=== PATIENT | male | born 1965 | race Caucasian/White ===

== ENCOUNTER 2020-12-26 16:47 | Outpatient (CLI) | payer BC, SELFPAY | END 2020-12-26 16:48 | disposition home or self-care (01) | LOC: ANHCOVIDVC 16:48 | PROVIDERS: PCP Family Medicine | DX: Z23 Encounter for immunization (principal) | CPT/HCPCS: 0001A; 91300 ==

== ENCOUNTER 2021-01-16 16:49 | Outpatient (CLI) | payer BC, SELFPAY | END 2021-01-16 16:50 | disposition home or self-care (01) | LOC: ANHCOVIDVC 16:50 | PROVIDERS: PCP Family Medicine | DX: Z23 Encounter for immunization (principal) | CPT/HCPCS: 0002A; 91300 ==

== ENCOUNTER 2021-01-18 07:00 | Outpatient (CLI) | payer BC, SELFPAY ==
[2021-01-18 07:34] LABS: Hematocrit 44.9 % (42.0-52.0); Hemoglobin 15.5 g/dL (14.0-18.0); Mean Corpuscular HGB Conc 34.5 g/dl (32-36); Mean Corpuscular Hemoglobin 29.6 pg (26-34); Mean Corpuscular Volume 85.7 fl (80-100); Mean Platelet Volume 9.6 fl (7.4-10.4); Platelet Count Result 153 k/mm3 (150-375); Red Blood Count 5.24 M/mm3 (4.6-6.20); Red Cell Distribution Width 11.8 % (11.5-14.5); White Blood Count 5.2 K/mm3 (4.5-10.0)
[2021-01-18 07:46] LABS: Alanine Aminotransferase 29 U/L (4-50); Albumin Level 4.5 g/dL (3.5-5.1); Alkaline Phosphatase 69 U/L (38-126); Anion Gap 8 mmol/L (8-16); Aspartate Amino Transferase 23 U/L (17-59); Bilirubin,Total 0.7 mg/dL (0.2-1.3); Blood Urea Nitrogen 11 mg/dL (9-20); Carbon Dioxide 28 mmol/L (22-30); Chloride 99 mmol/L (98-107); Cholesterol 176 mg/dL (0-200); Estimated Glomerular Filt Rate > 60; Glucose 293 mg/dL (75-110); HDL Direct 48 mg/dL; Potassium 4.5 mmol/L (3.4-5.0); Sodium 135 mmol/L (137-145); Triglycerides 206 mg/dL (<150)
[2021-01-18 07:57] LABS: LDL Cholesterol Direct 89 mg/dL
[2021-01-18 08:11] LABS: Creatinine Urine 112.4 mg/dL
[2021-01-18 08:15] LABS: MALB Creatinine Ratio 49.5 mg/g (0-30); Microalbumin Urine Random 55.6 mg/L (0-16.7)
[2021-01-18 10:03] LABS: Prostate Specific Antigen 1.1 ng/mL (< OR = 4.0)
== END 2021-01-18 07:01 | disposition home or self-care (01) ==
PROVIDERS: PCP Family Medicine; Visit Provider Nurse Practitioner Family
DX: E11.9 Type 2 diabetes mellitus without complications (principal); I10 Essential (primary) hypertension; E78.5 Hyperlipidemia, unspecified; Z12.5 Encounter for screening for malignant neoplasm of prostate
CPT/HCPCS: 36415; 80053; 80061; 82043; 83036; 84153; 84443; 85027; G0103

== ENCOUNTER 2021-11-20 07:44 | Outpatient (CLI) | payer OTHER, SELFPAY ==
[2021-11-20 08:45] LABS: Basophils Percent Auto 0.6 % (0.2-1.2); Eosinophils Absolute Auto 0.3 K/mm3 (0-0.3); Eosinophils Percent Auto 4.2 % (0-4.4); Hematocrit 46.9 % (42.0-52.0); Hemoglobin 16.2 g/dL (14.0-18.0); Immature Granulocyte Absolute 0.02 K/mm3 (0.00-0.031); Immature Granulocyte Percent A 0.3 % (0-0.5); Lymphocytes Absolute Auto 1.73 K/mm3 (0.9-3.2); Lymphocytes Percent Auto 25.9 % (18.3-44.2); Mean Corpuscular HGB Conc 34.5 g/dl (32-36); Mean Corpuscular Hemoglobin 31.1 pg (26-34); Mean Platelet Volume 10.1 fl (7.4-10.4); Monocytes Absolute Auto 0.4 K/mm3 (0.1-0.6); Monocytes Percent Auto 6.4 % (2.6-8.5); Neutrophils Absolute Auto 4.2 K/mm3 (1.3-6.7); Neutrophils Percent Auto 62.6 % (45.5-73.1); Platelet Count Result 179 k/mm3 (150-375); Red Blood Count 5.21 M/mm3 (4.6-6.20); Red Cell Distribution Width 11.6 % (11.5-14.5); White Blood Count 6.7 K/mm3 (4.5-10.0)
[2021-11-20 08:55] LABS: Alanine Aminotransferase 28 U/L (4-50); Albumin Level 4.7 g/dL (3.5-5.1); Alkaline Phosphatase 66 U/L (38-126); Anion Gap 8 mmol/L (8-16); Aspartate Amino Transferase 21 U/L (17-59); Bilirubin,Total 0.6 mg/dL (0.2-1.3); Blood Urea Nitrogen 11 mg/dL (9-20); Calcium 9.4 mg/dL (8.4-10.2); Carbon Dioxide 28 mmol/L (22-30); Chloride 99 mmol/L (98-107); Cholesterol 196 mg/dL (0-200); Estimated Glomerular Filt Rate > 60; Glucose 293 mg/dL (65-110); HDL Direct 54 mg/dL; Potassium 4.4 mmol/L (3.4-5.0); Sodium 135 mmol/L (137-145); Triglycerides 221 mg/dL (<150)
[2021-11-20 09:05] LABS: LDL Cholesterol Direct 97 mg/dL
[2021-11-20 09:14] LABS: Hemoglobin A1C 9.9 % (<5.7)
[2021-11-20 09:24] LABS: Prostate Specific Antigen 1.1 ng/mL (< OR = 4.0)
[2021-11-20 09:34] LABS: Creatinine Urine 76.1 mg/dL
[2021-11-20 09:40] LABS: MALB Creatinine Ratio 23.7 mg/g (0-30)
== END 2021-11-20 07:45 | disposition home or self-care (01) ==
PROVIDERS: PCP Family Medicine; Visit Provider Family Medicine
DX: E11.69 Type 2 diabetes mellitus with other specified complication (principal); I10 Essential (primary) hypertension; E78.49 Other hyperlipidemia; Z13.220 Encounter for screening for lipoid disorders; Z12.5 Encounter for screening for malignant neoplasm of prostate
CPT/HCPCS: 36415; 80048; 80061; 80076; 82043; 83036; 84153; 84443; 85025; G0103

== ENCOUNTER 2021-12-21 01:37 | Day surgery (SDC) | payer OTHER, SELFPAY ==
[2021-12-14 13:48] VITALS: BMI 33.5
[2021-12-21 08:29] VITALS: BP 153/86; PULSE 92; RESP 20; TEMP 36.4; O2SAT 98; BMI 32.1
[2021-12-21] MEDS: LACTATED RINGERS 1,000 ML 150 ML IV CONT (08:36)
[2021-12-21 08:41] LABS: Glucose Point of Care 203 mg/dl (65-105)
--- NOTE | 2021-12-21 08:43 | WPDGICN ---
Assessment and Plan Assessment and plan (1) Screen for colon cancer: Code(s): Z12.11 - Encounter for screening for malignant neoplasm of colon Status: Acute Assessment and Plan: Patient presents today for colon cancer screening. His father has colon polyps suggesting he may have a little bit higher risk GI Consult Note Consult date/time: 12/21/21 08:43 HPI: Tre Mclaughlin is a 55 year old male Presents for screening colonoscopy. Patient reports that his current weight appetite and bowel movements are normal. He denies abdominal pain. He has had no bleeding. Family history is significant that his father had colon polyps. Patient presents today for neoplasia screening. Review of Systems Review of Systems: All systems reviewed & are unremarkable except as noted in HPI and below PMFSH Past Medical History Medical History BMI 33.0-33.9,adult Screen for colon cancer Family History Family History Father Cerebrovascular accident Family history of diabetes mellitus in first degree relative Stomach cancer Mother Family history of diabetes mellitus in first degree relative Diabetes mellitus Social History Social History Years smoked: 10 Smoking status: Former smoker Tobacco type: cigars Second hand tobacco smoke exposure: Yes Alcohol intake: current Substance use: never Substance use type: marijuana Living arrangements: with family 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 Gender identity (if verbalized by the patient): Male Sexual Orientation (if Verbalized by the Patient): Straight or Heterosexual Spiritual care concerns: No Meds Home Medications and Allergies Home Medications Medication Instructions Recorded Confirmed Type omeprazole 20 mg capsule,delayed 20 mg PO DAILY #30 cap 07/12/21 12/14/21 Rx release amlodipine 10 mg tablet 10 mg PO DAILY #90 tablet 11/13/21 12/14/21 Rx empagliflozin 5 mg-metformin ER 2 tablet PO DAILY #180 ea 11/22/21 12/14/21 Rx 1,000 mg tablet,extended release 24 hr atorvastatin 10 mg tablet 10 mg PO DAILY #30 tablet 11/26/21 12/14/21 Rx lisinopril 20 mg tablet 20 mg PO DAILY #30 tablet 11/26/21 12/14/21 Rx metformin 1,000 mg PO DAILY 12/14/21 12/14/21 History Allergies Allergy/AdvReac Type Severity Reaction Status Date / Time No Known Allergies Allergy Verified 12/21/21 08:23 Vital Signs Vital Signs - 24 hr 12/21/21 08:29 Temperature 97.6 F Pulse Rate 92 Respiratory Rate 20 Blood Pressure 153/86 H Pulse Oximetry 98 Exam Narrative: Physical exam reveals patient to be alert. Vital signs stable. HEENT exam is unremarkable. Patient is anicteric. Lungs are clear to auscultation and percussion. Heart is without murmur or extra sounds. Abdominal exam bowel sounds are present soft nontender with no hepatosplenomegaly. Digital external rectal exam is normal.
--- NOTE | 2021-12-21 09:02 | WPDANESEPPF ---
Anes - Initial Pre Proc Eval Procedure: Operation Date: 12/21/21 09:30 Proposed Procedures p Screening Colonoscopy - Richard Green MD Date/Time: 12/21/21 09:02 Surgeon: Richard Green MD Pre Op Diagnosis: neoplasm screening Patient Data Age: 55 Gender: M Height: 1.75 m Weight: 98.5 kg Last Vital Signs Temp 97.6 F 12/21/21 08:29 Pulse 92 12/21/21 08:29 Resp 20 12/21/21 08:29 BP 153/86 H 12/21/21 08:29 Pulse Ox 98 12/21/21 08:29 Allergies Allergy/AdvReac Type Severity Reaction Status Date / Time No Known Allergies Allergy Verified 12/21/21 08:23 Home Medications Medication Instructions Recorded Confirmed Type omeprazole 20 mg capsule,delayed 20 mg PO DAILY #30 cap 07/12/21 12/14/21 Rx release amlodipine 10 mg tablet 10 mg PO DAILY #90 tablet 11/13/21 12/14/21 Rx empagliflozin 5 mg-metformin ER 2 tablet PO DAILY #180 ea 11/22/21 12/14/21 Rx 1,000 mg tablet,extended release 24 hr atorvastatin 10 mg tablet 10 mg PO DAILY #30 tablet 11/26/21 12/14/21 Rx lisinopril 20 mg tablet 20 mg PO DAILY #30 tablet 11/26/21 12/14/21 Rx metformin 1,000 mg PO DAILY 12/14/21 12/14/21 History Laboratory Tests 12/21/21 08:38 POC Capillary Glucose 203 mg/dl H mg/dl (65-105) Patient hx anesthesia problems: none Family hx anesthesia problems: none Results Review: All pre-operative results and documents have been reviewed as part of the pre-operative evaluation. 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 Gender identity (if verbalized by the patient): Male Sexual Orientation (if Verbalized by the Patient): Straight or Heterosexual Spiritual care concerns: No Anes - Eval Final PreProcedure Day of Procedure 12/21/21 09:02 Patient weight: obese Heart: regular rate and rhythm Lungs: clear to auscultation Airway: Mallampati scale class II Neurological: alert and oriented Last oral intake: >/= 8 hours ASA classification: III Emergent: no Anesthetic plan: proceed Anesthesia type and monitoring: general GIVS and standard monitoring Results Review: All pre-operative results and documents have been reviewed as part of the pre-operative evaluation. Informed Consent: The patient's anesthetic plan and its attendant risks and benefits were discussed with the patient/family/POA. Questions were solicited and answers provided to the satisfaction of the patient/family/POA.
[2021-12-21 09:46] VITALS: BP 114/80; PULSE 73; RESP 21; O2SAT 99
[2021-12-21 09:56] VITALS: BP 126/85; PULSE 67; RESP 22; O2SAT 98
[2021-12-21 10:06] VITALS: BP 119/81; PULSE 68; RESP 18; O2SAT 98
== END 2021-12-21 10:19 | disposition home or self-care (01) ==
PROVIDERS: PCP Family Medicine; Visit Provider Internal Medicine Gastroenterology
PROC: 0DJD8ZZ Inspection of Lower Intestinal Tract, Via Natural or Artificial Opening Endoscopic (ICD-10-PCS; CPT 45378; principal; 2021-12-21 09:30)
DX: Z12.11 Encounter for screening for malignant neoplasm of colon (principal); D12.2 Benign neoplasm of ascending colon; K63.5 Polyp of colon; K64.8 Other hemorrhoids; Z83.71 Family history of colonic polyps; Z87.891 Personal history of nicotine dependence
CPT/HCPCS: 45385; 82948; 88305; J2704; J7120

== ENCOUNTER 2023-02-04 08:17 | Outpatient (CLI) | payer OTHER, SELFPAY ==
[2023-02-04 08:35] LABS: Basophils Absolute Auto 0.1 K/mm3 (0.0-0.1); Basophils Percent Auto 0.9 % (0.2-1.2); Eosinophils Absolute Auto 0.5 K/mm3 (0-0.3); Eosinophils Percent Auto 6.4 % (0-4.4); Hematocrit 43.2 % (42.0-52.0); Hemoglobin 14.6 g/dL (14.0-18.0); Immature Granulocyte Absolute 0.02 K/mm3 (0.00-0.031); Immature Granulocyte Percent A 0.3 % (0-0.5); Lymphocytes Absolute Auto 1.64 K/mm3 (0.9-3.2); Lymphocytes Percent Auto 21.4 % (18.3-44.2); Mean Corpuscular HGB Conc 33.8 g/dl (32-36); Mean Corpuscular Hemoglobin 30.2 pg (26-34); Mean Corpuscular Volume 89.3 fl (80-100); Mean Platelet Volume 9.8 fl (7.4-10.4); Monocytes Absolute Auto 0.5 K/mm3 (0.1-0.6); Monocytes Percent Auto 6.9 % (2.6-8.5); Neutrophils Absolute Auto 4.9 K/mm3 (1.3-6.7); Neutrophils Percent Auto 64.1 % (45.5-73.1); Platelet Count Result 156 k/mm3 (150-375); Red Blood Count 4.84 M/mm3 (4.6-6.20); Red Cell Distribution Width 12.2 % (11.5-14.5); White Blood Count 7.7 K/mm3 (4.5-10.0)
[2023-02-04 08:54] LABS: Alanine Aminotransferase 25 U/L (6-50); Albumin Level 4.6 g/dL (3.5-5.1); Alkaline Phosphatase 53 U/L (38-126); Anion Gap 9 mmol/L (8-16); Aspartate Amino Transferase 19 U/L (17-59); Bilirubin,Total 0.5 mg/dL (0.2-1.3); Blood Urea Nitrogen 12 mg/dL (9-20); Calcium 8.9 mg/dL (8.4-10.2); Carbon Dioxide 28 mmol/L (22-30); Chloride 100 mmol/L (98-107); Cholesterol 156 mg/dL (0-200); Estimated Glomerular Filt Rate > 60; Glucose 126 mg/dL (65-110); HDL Direct 46 mg/dL; Potassium 4.2 mmol/L (3.4-5.0); Sodium 137 mmol/L (137-145); Triglycerides 174 mg/dL (<150)
[2023-02-04 09:00] LABS: Hemoglobin A1C 6.5 % (<5.7)
[2023-02-04 09:05] LABS: LDL Cholesterol Direct 77 mg/dL
[2023-02-04 09:12] LABS: Creatinine Urine 73.7 mg/dL
[2023-02-04 09:15] LABS: MALB Creatinine Ratio 18.5 mg/g (0-30); Microalbumin Urine Random 13.6 mg/L (0-16.7)
[2023-02-04 09:26] LABS: Prostate Specific Antigen 1.7 ng/mL (< OR = 4.0)
== END 2023-02-04 08:18 | disposition home or self-care (01) ==
LOC: ANHLAB 08:18
PROVIDERS: PCP Family Medicine; Visit Provider Family Medicine
DX: E11.69 Type 2 diabetes mellitus with other specified complication (principal); E78.49 Other hyperlipidemia; Z13.220 Encounter for screening for lipoid disorders; Z12.5 Encounter for screening for malignant neoplasm of prostate; I10 Essential (primary) hypertension
CPT/HCPCS: 36415; 80048; 80061; 80076; 82043; 83036; 84153; 84443; 85025; G0103

== ENCOUNTER 2025-01-14 00:03 | Day surgery (SDC) | payer BC, SELFPAY ==
[2025-01-06 16:00] VITALS: BMI 33.5
--- NOTE | 2025-01-13 13:13 | P.PNAN_ITS ---
Anes - Initial Pre Proc Eval Procedure: Operation Date: 01/14/25 07:30 Proposed Procedures p Screening Colonoscopy - Erwin Reid MD Date/Time: 01/13/25 13:13 Surgeon: Erwin Reid MD Pre Op Diagnosis: Encounter for screening for malignant neoplasm of Patient Data Age: 59 Gender: M Height: 1.73 m Weight: 100 kg Allergies Allergy/AdvReac Type Severity Reaction Status Date / Time No Known Allergies Allergy Verified 01/14/25 06:33 Home Medications ?Medication ?Instructions ?Recorded ?Confirmed ?Type sildenafil 100 mg tablet 100 mg PO DAILY PRN sexual 06/10/23 01/06/25 Rx activity #30 tabs empagliflozin 12.5 mg-metformin ER 2 tablet (2 x 12.5-1,000 mg) PO 08/12/24 01/06/25 Rx 1,000 mg tablet,extended rel 24 hr DAILY #180 ea (Synjardy XR) amlodipine 10 mg tablet 10 mg PO DAILY #90 tabs 08/15/24 01/06/25 Rx atorvastatin 10 mg tablet 10 mg PO DAILY #90 tabs 11/05/24 01/06/25 Rx lisinopril 20 mg tablet 20 mg PO DAILY #90 tabs 11/05/24 01/06/25 Rx omeprazole 20 mg capsule,delayed 20 mg PO DAILY #90 caps 11/20/24 01/06/25 Rx release Patient hx anesthesia problems: none Family hx anesthesia problems: none Results Review: All pre-operative results and documents have been reviewed as part of the pre- operative evaluation. [facility] Past Medical History Medical History (Updated 01/13/25 @ 13:14 by Zaid Sánchez DO) Diabetes type 2, controlled GERD (gastroesophageal reflux disease) Hypertension Hyperlipidemia Erectile dysfunction Onychomycosis Screen for colon cancer Family History Family History Father Cerebrovascular accident Family history of diabetes mellitus in first degree relative Stomach cancer Mother Family history of diabetes mellitus in first degree relative Diabetes mellitus Social History Social History Years smoked: 10 Smoking status: Former smoker Tobacco type: cigars Second hand tobacco smoke exposure: Yes Alcohol intake: current Drinks per week: 10 Substance use: current Substance use type: marijuana Other substance usage details: 2x a week Lack of Transportation: No Lack of Food: Never True Current Housing: I Have Housing Concerned About Future Housing: No Difficulty Paying Gas/Electric Bills: No Difficulty Paying for Meds: No Currently Unemployed: No Education: Associate Degree Difficulty w/ Childcare or Family Care: No Living arrangements: alone Occupation/Education: occupation 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 Gender identity (if verbalized by the patient): Male Sexual Orientation (if Verbalized by the Patient): Straight or Heterosexual Spiritual care concerns: No Anes - Eval Final PreProcedure Day of Procedure Patient weight: obese Heart: regular rate and rhythm Lungs: clear to auscultation Airway: Mallampati scale class II Neurological: alert and oriented Last oral intake: >/= 8 hours ASA classification: III Emergent: no Anesthetic plan: proceed Anesthesia type and monitoring: general GIVS and standard monitoring
[2025-01-14 06:34] VITALS: BP 142/76; PULSE 68; RESP 18; TEMP 36.1; O2SAT 98
[2025-01-14] MEDS: LACTATED RINGERS 1,000 ML 150 ML IV CONT (06:43)
[2025-01-14 06:44] LABS: Glucose Point of Care 139 mg/dl (65-105)
--- NOTE | 2025-01-14 07:33 | P.HP_ITS ---
H&P: HPI History of Present Illness Date/Time: 01/14/25 07:33 Chief Complaint: History of colon polyps Narrative: The patient has a history of colonic polyps, the last colonoscopy was approximately 5 years Review of Systems Review of Systems: All systems reviewed & are unremarkable except as noted in HPI and below PMFSH Past Medical History Medical History (Updated 01/13/25 @ 13:14 by Zaid Sánchez DO) Diabetes type 2, controlled GERD (gastroesophageal reflux disease) Hypertension Hyperlipidemia Erectile dysfunction Onychomycosis Screen for colon cancer Family History Family History Father Cerebrovascular accident Family history of diabetes mellitus in first degree relative Stomach cancer Mother Family history of diabetes mellitus in first degree relative Diabetes mellitus Social History Social History Years smoked: 10 Smoking status: Former smoker Tobacco type: cigars Second hand tobacco smoke exposure: Yes Alcohol intake: current Drinks per week: 10 Substance use: current Substance use type: marijuana Other substance usage details: 2x a week Lack of Transportation: No Lack of Food: Never True Current Housing: I Have Housing Concerned About Future Housing: No Difficulty Paying Gas/Electric Bills: No Difficulty Paying for Meds: No Currently Unemployed: No Education: Associate Degree Difficulty w/ Childcare or Family Care: No Living arrangements: alone Occupation/Education: occupation 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 Gender identity (if verbalized by the patient): Male Sexual Orientation (if Verbalized by the Patient): Straight or Heterosexual Spiritual care concerns: No Meds Home Medications and Allergies Home Medications ?Medication ?Instructions ?Recorded ?Confirmed ?Type sildenafil 100 mg tablet 100 mg PO DAILY PRN sexual 06/10/23 01/06/25 Rx activity #30 tabs empagliflozin 12.5 mg-metformin ER 2 tablet (2 x 12.5-1,000 mg) PO 08/12/24 01/06/25 Rx 1,000 mg tablet,extended rel 24 hr DAILY #180 ea (Synjardy XR) amlodipine 10 mg tablet 10 mg PO DAILY #90 tabs 08/15/24 01/06/25 Rx atorvastatin 10 mg tablet 10 mg PO DAILY #90 tabs 11/05/24 01/06/25 Rx lisinopril 20 mg tablet 20 mg PO DAILY #90 tabs 11/05/24 01/06/25 Rx omeprazole 20 mg capsule,delayed 20 mg PO DAILY #90 caps 11/20/24 01/06/25 Rx release Allergies Allergy/AdvReac Type Severity Reaction Status Date / Time No Known Allergies Allergy Verified 01/14/25 06:33 Vital Signs Vital Signs - 24 hr 01/14/25 06:34 Temperature 97 F L Pulse Rate 68 Respiratory Rate 18 Blood Pressure 142/76 H Pulse Oximetry 98 Oxygen Delivery Room Air Exam Const: General: cooperative and healthy appearing Resp: Effort & Inspection: normal respiratory effort and able to speak in complete sentences Auscultation: clear to auscultation bilaterally Cardio: Rate: regular rate Rhythm: regular rhythm GI: Inspection: normal to inspection GI Palp: No No hepatosplenomegaly present Auscultation: normal bowel sounds Rectal Exam: deferred Skin: General skin exam: normal color Psych: Appearance: grossly normal Mental Status: mental status grossly normal Assessment and Plan Assessment and plan (1) Screen for colon cancer: Code(s): Z12.11 - Encounter for screening for malignant neoplasm of colon Status: Acute Assessment and Plan: The patient is deemed a good candidate for the procedure. Consent signed. Will proceed.
[2025-01-14 07:48] VITALS: BP 131/81; PULSE 85; RESP 25; O2SAT 97
[2025-01-14 07:58] VITALS: BP 133/83; PULSE 80; RESP 24; O2SAT 97
[2025-01-14 08:08] VITALS: BP 127/84; PULSE 66; RESP 21; O2SAT 98
== END 2025-01-14 08:18 | disposition home or self-care (01) ==
PROVIDERS: PCP Family Medicine; Referring Provider Internal Medicine Gastroenterology; Visit Provider Internal Medicine Gastroenterology
PROC: 0DJD8ZZ Inspection of Lower Intestinal Tract, Via Natural or Artificial Opening Endoscopic (ICD-10-PCS; CPT 45378; principal; 2025-01-14 07:30)
DX: Z12.11 Encounter for screening for malignant neoplasm of colon (principal); Z80.0 Family history of malignant neoplasm of digestive organs; E11.9 Type 2 diabetes mellitus without complications; Z87.891 Personal history of nicotine dependence; F12.90 Cannabis use, unspecified, uncomplicated; E66.9 Obesity, unspecified; Z68.33 Body mass index [BMI] 33.0-33.9, adult
CPT/HCPCS: 45378; 82948; J2704; J7120

== ENCOUNTER 2025-03-16 09:08 | Outpatient (CLI) | payer BC, SELFPAY ==
[2025-03-16 09:33] LABS: Hematocrit 44.5 % (42.0-52.0); Hemoglobin 15.1 g/dL (14.0-18.0); Mean Corpuscular HGB Conc 33.9 g/dl (32-36); Mean Corpuscular Hemoglobin 30.1 pg (26-34); Mean Corpuscular Volume 88.8 fl (80-100); Mean Platelet Volume 9.8 fl (7.4-10.4); Platelet Count Result 181 k/mm3 (150-375); Red Blood Count 5.01 M/mm3 (4.6-6.20); Red Cell Distribution Width 12.8 % (11.5-14.5); White Blood Count 6.6 K/mm3 (4.5-10.0)
[2025-03-16 09:45] LABS: Alanine Aminotransferase 35 U/L (6-50); Albumin Level 4.8 g/dL (3.5-5.1); Alkaline Phosphatase 53 U/L (38-126); Anion Gap 8 mmol/L (4-12); Aspartate Amino Transferase 29 U/L (17-59); Bilirubin Direct 0.2 mg/dL (0-0.3); Bilirubin,Total 0.7 mg/dL (0.2-1.3); Blood Urea Nitrogen 10 mg/dL (9-20); Calcium 9.3 mg/dL (8.4-10.2); Carbon Dioxide 25 mmol/L (22-30); Chloride 105 mmol/L (98-107); Cholesterol 176 mg/dL (0-200); Estimated Glomerular Filt Rate > 60; Glucose 206 mg/dL (65-110); HDL Direct 58 mg/dL; Potassium 4.4 mmol/L (3.4-5.0); Sodium 138 mmol/L (137-145); Total Protein 7.9 g/dL (6.3-8.2); Triglycerides 158 mg/dL (<150)
[2025-03-16 09:56] LABS: LDL Cholesterol Direct 88 mg/dL
[2025-03-16 10:16] LABS: Prostate Specific Antigen 1.2 ng/mL (< OR = 4.0)
[2025-03-16 11:21] LABS: Hemoglobin A1C 7.9 % (<5.7)
[2025-03-16 11:45] LABS: MALB Creatinine Ratio 22.9 mg/g (0-30); Microalbumin Urine Random 11.9 mg/L (0-16.7)
== END 2025-03-16 09:09 | disposition home or self-care (01) ==
LOC: ANHLAB 09:10
PROVIDERS: PCP Family Medicine; Visit Provider Family Medicine
DX: Z13.220 Encounter for screening for lipoid disorders (principal); Z12.5 Encounter for screening for malignant neoplasm of prostate; E78.49 Other hyperlipidemia; I10 Essential (primary) hypertension; E11.69 Type 2 diabetes mellitus with other specified complication
CPT/HCPCS: 36415; 80048; 80061; 80076; 82043; 83036; 84153; 84443; 85027; G0103